=== PATIENT | male | born 2000 | race Caucasian/White ===

== ENCOUNTER 2020-04-09 15:35 | Emergency (ER) | payer BC ==
[~2020-04-09] VITALS: Ht 172.7 cm; Wt 63.5 kg
[2020-04-09 15:46] VITALS: BP_SYST 138
[2020-04-09 16:50] VITALS: BP_SYST 136
== END 2020-04-09 16:50 | disposition home or self-care (01) ==
LOC: SED 15:55
DX: S46.911A Strain of unspecified muscle, fascia and tendon at shoulder and upper arm level, right arm, initial encounter (principal); X58.XXXA Exposure to other specified factors, initial encounter; Y93.64 Activity, baseball; Y92.89 Other specified places as the place of occurrence of the external cause; Y99.8 Other external cause status
CPT/HCPCS: 71045; 99283